=== PATIENT | female | born 1995 | race Caucasian/White ===

== ENCOUNTER 2021-08-07 12:22 | Emergency (ER) | payer BC, OTHER ==
[~2021-08-07] VITALS: Ht 154.9 cm; Wt 63.5 kg
[~2021-08-07 12:22] MED LIST: CRAN1TAB
--- NOTE | 2021-08-07 12:47 | NUR ---
TO ER BED 6, C/O LEFT CHEST PAIN SINCE LAST TUESDAY, DENIES SOB, AAOX3, BREATHING EVEN AND NON LABORED, CONNECTED TO MONITOR
--- NOTE | 2021-08-07 13:04 | NUR ---
SALINE LOCK ESTABLISHED AND BLOOD DRAWN
--- NOTE | 2021-08-07 13:40 | NUR ---
CURT MERRITT MD WITH BREAST EXAMINATION.
[2021-08-07] MEDS ORDERED: IBUP-1955 PO (14:01)
[2021-08-07 15:00] LABS: BASOPHILS % (AUTO) 0.4 % (0.0-2.0); EOSINOPHILS % (AUTO) 0.6 % (0.0-6.0); HEMATOCRIT 43 % (33-45); HEMOGLOBIN 14.8 g/dL (11.5-14.8); LYMPHOCYTES # (AUTO) 1.3 K/uL (0.8-4.8); LYMPHOCYTES % (AUTO) 26.7 % (20.0-44.0); MEAN CORPUSCULAR HGB CONC 35 g/dl (31.0-36.0); MEAN CORPUSCULAR VOLUME 82 fL (82-100); MONOCYTES # (AUTO) 0.3 K/uL (0.1-1.30); MONOCYTES % (AUTO) 6.2 % (2.0-12.0); NEUTROPHILS # (AUTO) 3.1 K/uL (1.8-8.9); NEUTROPHILS % (AUTO) 66.1 % (43.0-81.0); PLATELET COUNT (AUTO) 202 K/uL (150-450); RED BLOOD CELL COUNT(AUTO) 5.18 MIL/uL (4.0-5.2); WHITE BLOOD COUNT (AUTO) 4.8 K/uL (4.3-11.0)
[2021-08-07 15:26] LABS: CARBON DIOXIDE 24 mmol/L (21-32); CHLORIDE 103 mmol/L (98-107); CREATININE 0.9 mg/dL (0.6-1.3); GLUCOSE 88 mg/dL (74-106); POTASSIUM 3.9 mmol/L (3.5-5.1); SODIUM SERUM 138 mmol/L (136-145); UREA NITROGEN, BLOOD 14 mg/dL (7-18)
--- NOTE | 2021-08-07 17:05 | NUR ---
Patient discharged to home in stable condition. Written and verbal after care instructions given. Patient verbalizes understanding of instruction. (pt. name) ambulatory with a steady gait
[2021-08-07 17:17] VITALS: BP 118/67
== END 2021-08-07 17:05 | disposition home or self-care (01) ==
LOC: ER 12:23
DX: R07.89 Other chest pain (principal)
CPT/HCPCS: 36415; 71045-TC; 80048-TC; 84484-TC; 85025-TC